=== PATIENT | male | born 1955 | race Caucasian/White ===

== ENCOUNTER 2018-07-04 19:36 | Inpatient (IN) ==
[2018-07-05] MEDS ORDERED: *HR* Morphine 2 MG/ML SYRINGE IVP ONE (00:22)
[2018-07-05] MEDS ORDERED: Isovue-370 500 ML BOTTLE IVP ONE ×2 (00:31→01:19)
[2018-07-05] MEDS ORDERED: *HR* Morphine 2 MG/ML SYRINGE IVP PRN (00:31)
[2018-07-05] MEDS ORDERED: 0.9 % Sodium Chloride 1,000 ML IVC SCH (00:45)
[2018-07-05] MEDS ORDERED: Naloxone 0.4 MG/ML INJ IVP PRN (01:23)
[2018-07-05] MEDS ORDERED: Ondansetron 4 MG/2 ML VIAL IVP PRN (01:23)
[2018-07-05] MEDS ORDERED: Albuterol 2.5 MG/3 ML NEBULIZER IH PRN (01:28)
[2018-07-05] MEDS ORDERED: 0.9 % Sodium Chloride 1,000 ML IVC ONE (01:28)
[2018-07-05] MEDS ORDERED: *HR* Heparin 5,000 UNIT/ML VIAL IVP PRN ×2 (01:28)
[2018-07-05] MEDS ORDERED: Heparin 25,000 UNIT/250 ML D5W 25,000 UNIT/250 ML IV.SOLN IVC SCH (01:30)
[2018-07-05 01:48] LABS: Basophils # 0.1 K/mcL (0.0-0.2); Basophils % 0.7 %; Eosinophils # 0.1 K/mcL (0.0-0.6); Eosinophils % 0.8 %; Hematocrit 41.5 % (37.5-50.1); Hemoglobin 13.2 g/dL (12.9-16.9); Immature Granulocytes % 0.3 % (0-4); Lymphocytes # 1.1 K/mcL (0.6-4.6); Lymphocytes % 15.1 %; Mean Corpuscular HGB Conc 31.8 g/dL (31.6-35.5); Mean Corpuscular Hemoglobin 28.3 pg (28.0-33.3); Mean Corpuscular Volume 89.1 fL (83.0-100.0); Mean Platelet Volume 12.2 fL (9.4-12.4); Monocytes # 0.8 K/mcL (0.0-1.3); Monocytes % 10.3 %; Neutrophils # 5.3 K/mcL (1.6-8.9); Platelet Count 115 K/mcL (140-400); Red Blood Count 4.66 M/mcL (4.19-5.50); Red Cell Distribution Width 14.4 % (11.5-14.5); Segmented Neutrophils % 72.8 %
--- NOTE | 2018-07-05 01:51 | Internal Med History&Physical ---
Date of Encounter: 07/05/18 Time of Encounter: 00:19 Internal Medicine - H&P: HPI Chief complaint: chest pain Admitted From: Hospital to Hospital Transfer Plans for Post Hospital Care: Home History of present illness: Mr. Mueller is a 62 year old male who was transferred from [facility] inpatient unit for concerns of chest pain and positive troponin. I spoke with the nursing staff at [facility] after a transfer request was made by the primary physician. The primary physician was not at the hospital, so I spoke with the nursing staff who gave me report and history of the patient. Patient reportedly was admitted for chest pain 2 days ago and then had positive troponin today. Therefore, patient was transferred over for further cardiac workup and care. Patient reportedly had recurrence of chest pain, which prompted a repeat troponin and transfer to [facility]. Upon arrival to [facility], I was summoned by nursing staff emergently to his bedside for patient having significant difficulty with crushing chest pain radiating to his mid back. Patient was in severe distress, clutching his chest, complaining of pain going to his back, and having significant increased work of breathing. I ordered some STAT morphine to alleviate his pain, stat EKG, and a STAT CTA of the chest and aorta with runoff to evaluate for possible aortic dissection. We were able to control his chest with morphine, and I am awaiting CTA results. EKG showed left bundle branch block, which was old compared to prior EKGs. On exam, he does have crackles in the left base concerning for pneumonia. Patient was having had cough, fevers, and chills prior to admission. After the morphine administration, he felt much better and was resting comfortably. Nonetheless, there is still a high index of suspicion for aortic dissection, and I therefore ordered a CTA of the chest and abdomen. Patient does have a history of coronary artery disease and had a CABG in 2000 in [place], [place]. He recently relocated to [place] about 1 year ago and resides in the [facility]. He is a smoker but denies any alcohol or illicit drug use. He denies any GI problems. Patient was transferred here from [facility] on a heparin drip and Nitropaste. Past Med Surg Social Fam HX - Past Medical History Attestation: Yes The following information was validated with the patient. Source: patient, other ([facility] records) Medical history: CHF, COPD, coronary artery disease, hyperlipidemia, hypertension Additional medical history: RESTLESS LEGS Psychiatric history: no psych history - Past Surgical History Surgical History: coronary bypass (CABG) Additional surgical history: right leg surgery 1982 - Social History Smoking Status: Current every day smoker (Smokes less than 1PPD, but more than 0.5 PPD.) Smokeless Tobacco Status: No Alcohol use: none Drug use: marijuana Activity Level: Independent ambulation Recent Out of Country Travel Within the Last 8 Weeks: No - Family History Mother Living Status: Hx Family Cardiac Disorders: Yes ( Mother had an PA prior to 65yo.) Internal Medicine - H&P: Meds Aspirin [Lo-Dose Aspirin EC] 81 mg PO DAILY 07/02/18 [History] Gabapentin [Neurontin] 600 mg PO TID 07/02/18 [History] Metoprolol [Lopressor] 25 mg PO BID 07/02/18 [History] rOPINIRole [Requip] 1 mg PO TID 07/02/18 [History] Aspirin 81 mg PO DAILY 07/03/18 [History] Atorvastatin [Lipitor] 40 mg PO HS 07/03/18 [History] Ferrous Sulfate [Iron] 325 mg PO TID 07/03/18 [History] Furosemide [Lasix] 20 mg PO DAILY 07/03/18 [History] Lisinopril-HCTZ 10-12.5 [Prinzide 10-12.5] 1 each PO DAILY 07/03/18 [History] Allergy/AdvReac Type Severity Reaction Status Date / Time No Known Allergies Allergy Verified 07/02/18 16:55 - Constitutional Constitutional: fatigue, fever(s), no chills, no night sweats - EENT Eyes: no blurry vision, no change in vision Ears: no ear pain, no tinnitus Nose, mouth and throat: no nasal congestion, no sinus pressure, no sore throat - Cardiovascular Cardiovascular ROS IM: chest pain, diaphoresis, dyspnea, dyspnea on exertion, no orthopnea, no syncope - Respiratory Respiratory: cough, dyspnea, wheezing, chest congestion, change in phlegm color, pain with cough, no hemoptysis, no excessive phlegm production - Gastrointestinal Gastrointestinal: nausea, no abdominal pain, no diarrhea, no heartburn, no hematemesis, no hematochezia, no melena, no vomiting - Genitourinary Genitourinary ROS male: no dysuria, no flank pain, no hematuria - Musculoskeletal Musculoskeletal ROS IM: no arthralgias, no back pain - Integumentary Integumentary IM: no rash, no jaundice - Neurological Neurological ROS: no disequilibrium, no dizziness, no focal weakness, no frequent falls, no headache(s) - Psychiatric Psychiatric: no anxiety, no depression - Endocrine Endocrine IM: no polydipsia, no polyuria - Allergic/Immunologic Allergic/Immunologic: wheezing, no GI upset with certain foods - Constitutional Vitals: Temp Pulse Resp BP Pulse Ox 98.4 F 66 16 120/89 100 07/05/18 00:21 07/05/18 00:21 07/05/18 00:21 07/05/18 00:07/05/18 00:21 General appearance: Present: A&O X 3, severe distress, answers questions appropriately Exam: patient clutching his chest, diaphoretic, complaining of severe chest pain radiating from sternum to mid-back (knife-like pain), profoundly dyspneic, anxious, nervous - Head Head exam: Present: normal inspection - Eye Eye exam: Present: EOMI, PERRL. Absent: scleral icterus Pupils: Present: normal accommodation - ENT ENT exam: Present: mucous membranes dry, normal exam - Neck Neck exam general surgery: Present: full ROM, supple, trachea midline. Absent: tenderness, nuchal rigidity, thyromegaly - Respiratory Respiratory exam: Present: accessory muscle use, rales (left base), respiratory distress, tachypnea. Absent: chest wall tenderness, rhonchi, wheezes - Cardiovascular Cardiovascular exam: Present: distant heart sounds, RRR, +S1, +S2, tachycardia. Absent: diastolic murmur, systolic murmur - GI/Abdominal GI/Abdominal exam: Present: normal bowel sounds, soft. Absent: guarding, hepatomegaly, mass, rebound, splenomegaly, tenderness - Extremities Exam Extremities exam: Present: joint swelling, normal capillary refill, normal inspection, warm, radial pulses palpable and symmetrical. Absent: calf te nderness, mottling, pedal edema, tenderness - Back Exam Back exam: Present: normal inspection. Absent: CVA tenderness (L), CVA tenderness (R) - Neurological Exam Neurological exam: Present: alert, CN II-XII intact, oriented X3, no focal deficits - Psychiatric Psychiatric exam: Present: anxious - Skin Skin exam: Present: dry, intact, warm Internal Med - H&P Results - Labs Labs: I reviewed the labs from [facility] they include the following: WBC 9.4 Hemoglobin 13.5 Hematocrit 41.9 Platelets 126 PT 11.9 INR 1.1 Sodium 132 Potassium 4.1 Chloride 92 Dioxide 32 BUN 21 Creatinine 1.37 Troponin 0.05 EKG reveals left bundle branch block - EKG Data -: EKG Interpreted by Myself - EKG Data Prior EKG available for review: yes When compared to previous EKG: there is no significant change EKG comments: 07/05/18 01:58 Sinus rhythm; LBBB - Impressions ITS Impressions Aorta w/Runoff CTA 07/05/18 00:31 IMPRESSION: 1. No aneurysm or dissection in the visualized portions of the aorta. A chest was not performed and a repeat study will need to be performed in this patient with a history of chest pain. 2. Complete occlusion of the right common iliac artery, the left internal iliac artery, and the left superficial femoral artery with very poor flow in the lower legs. 3. Moderate to severe stenosis of the left renal artery origin. 4. Chest findings suggest congestive heart failure. 5. Trace ascites. Findings and the fact that a chest CT scan was either not requested or not performed was discussed with Dr. Bella at approximately 1:20 a.m. on 07/05/2018. D/ / Baltazar Harvey MD / Baltazar Harvey MD Interpreting Provider: Baltazar Harvey MD - Assessment and Plan (1) Chest pain Current Visit: Yes Status: Acute Assessment and plan: 1. Clinical concern for aortic dissection. 2. STAT CTA ordered as above. 3. Will trend troponins, EKG, and order ECHO. 4. Awaiting CTA results presently -- spoke with radiology; unable to determine for sure due to CTA study was done for PE rather than aorta; radiology recommends ordering STAT ECHO. Will order ECHO STAT. 5. Consult cardiology. 6. Continue Morphine and NTP for chest pain. 7. Heparin gtt on hold for now. Qualifiers: Chest pain type: other chest pain Qualified Code(s): R07.89 - Other chest pain; R07.8 - Other chest pain (2) Pneumonia Current Visit: Yes Status: Suspected Assessment and plan: 1. Clinical concern for pneumonia. 2. Will order blood cultures and start antibiotics. 3. Oxygen, aerosols as needed. 4. Chest pain may pleuritic in nature from pneumonia. Qualifiers: Pneumonia type: due to unspecified organism Laterality: left Lung location: lower lobe of lung Qualified Code(s): J18.1 - Lobar pneumonia, unspecified organism (3) COPD (chronic obstructive pulmonary disease) Current Visit: Yes Status: Chronic Assessment and plan: 1. Will order aerosols scheduled and PRN. 2. Oxygen as needed. 3. No active wheezing; hold off on steroids unless he develops COPD flare. Qualifiers: COPD type: unspecified COPD Qualified Code(s): J44.9 - Chronic obstructive pulmonary disease, unspecified (4) DVT prophylaxis Current Visit: Yes Status: Acute Assessment and plan: 1. Heparin stopped; will order EPCD's.
[2018-07-05 01:56] LABS: Prothrombin Time 11.8 Seconds (9.4-12.1)
[2018-07-05 01:57] LABS: Heparin anti-factor XA UFH 0.35 IU/mL (0.30-0.70)
[2018-07-05 01:59] LABS: Activated Partial Thrombo Time 57.2 Seconds (26.0-36.0)
[2018-07-05] MEDS ORDERED: Azithromycin 500 MG in D5% in Water 250 ML IVPB SCH (02:00)
[2018-07-05] MEDS ORDERED: cefTRIAXone 2,000 MG in Water for inj. (sterile) 20 ML 20 ML IVP SCH (02:00)
[2018-07-05 02:16] LABS: Alanine Aminotransferase 19 Units/L (7-52); Albumin 3.6 g/dL (3.5-5.7); Albumin/Globulin Ratio 1.5 (1.1-2.2); Alkaline Phosphatase 77 Units/L (34-104); Aspartate Amino Transferase 16 Units/L (13-39); BUN/Creatinine Ratio 21 (6-26); Blood Urea Nitrogen 25 mg/dL (8-23); Carbon Dioxide 29 mEq/L (23-29); Chloride 89 mEq/L (98-107); Chol/HDL Ratio 2.7 (0-4.9); Cholesterol 104 mg/dL (< 200); Globulin 2.4 g/dL (2.4-3.5); Glucose 95 mg/dL (70-105); HDL Cholesterol 39 mg/dL (40-59); LDL Cholesterol,Calculated 55 mg/dL (0-99); Magnesium 1.7 mg/dL (1.6-2.6); Osmolality,Calculated 266 (280-300); Potassium 4.1 mEq/L (3.5-5.1); Sodium 126 mEq/L (136-145); Triglycerides 48 mg/dL (< 150); Troponin I 0.06 ng/mL (< 0.04); eGFR For Non-African Americans > 60 (> 60)
[2018-07-05 02:53] VITALS: BP 115/80
[2018-07-05] MEDS: Ipratropium/Albuterol Neb 3 ML IH SCH ×2 (04:02)
[2018-07-05] MEDS ORDERED: Aspirin 81 MG TAB.CHEW PO SCH (09:00)
--- NOTE | 2018-07-05 17:51 | Electrocardiograph Report ---
[place] [address] Test Date: 2018-07-05 Pat Name: Flo Mueller Department: 111 Room: 2NE19 Gender: M Database Design Analyst: : 1955 Requested By: Jose Bella Order Number: [id number] Reading MD: Cheyenne Diop Measurements Intervals [place] Rate: 59 P: 0 ME: 130 QRS: 4 QRSD: 154 T: 99 QT: 467 QTc: 466 Interpretive Statements SINUS BRADYCARDIA LEFT BUNDLE BRANCH BLOCK Electronically Signed On 07-05-2018 17:49:21 EDT by Cheyenne Diop
== END 2018-07-05 04:55 | disposition critical access hospital (66) | DRG 299 ==
LOC: 2NENU
PROVIDERS: ADMIT Pediatrics; ATTEND Pediatrics

== ENCOUNTER 2019-06-14 14:08 | Inpatient (IN) ==
[2019-06-14] MEDS ORDERED: Naloxone 0.4 MG/ML INJ IVP PRN (17:43)
[2019-06-14 18:36] LABS: Bilirubin,Urine Small (Negative); Blood,Urine Negative (Negative); Clarity,Urine Clear (Clear); Color,Urine Dark Yellow (Yellow); Glucose,Urine (UA) Normal (Normal); Ketones,Urine Negative (Negative); Leukocyte Esterase,Urine Trace (Negative); Nitrite,Urine Negative (Negative); PH,Urine 5.5 pH Units (5.0-8.0); Protein,Urine Negative (Neg-Trace); Specific Gravity,Urine 1.021 (1.010-1.025)
[2019-06-14 18:38] LABS: RBC,Urine 0-3 per hpf (0-3); Squamous Epithelial Cell,Urine Many per lpf (None-Few); WBC,Urine 0-3 per hpf (0-3)
[2019-06-14 18:44] LABS: Sodium, Urine 19.7 mEq/L
[2019-06-14 18:47] LABS: Eosinophils % 0.6 %; Mean Corpuscular Volume 84.8 fL (83.0-100.0)
[2019-06-14 18:49] LABS: Basophils % 0.3 %; Hemoglobin 11.7 g/dL (12.9-16.9); Immature Granulocytes % 0.9 % (0-4); Immature Platelets 7.6 % (1.1-6.1); Lymphocytes # 0.5 K/mcL (0.6-4.6); Mean Corpuscular HGB Conc 30.8 g/dL (31.6-35.5); Mean Corpuscular Hemoglobin 26.1 pg (28.0-33.3); Mean Platelet Volume 10.5 fL (9.4-12.4); Monocytes # 0.6 K/mcL (0.0-1.3); Monocytes % 8.7 %; Neutrophils # 5.7 K/mcL (1.6-8.9); Red Blood Count 4.48 M/mcL (4.19-5.50); Red Cell Distribution Width 17.3 % (11.5-14.5); Segmented Neutrophils % 82.5 %; White Blood Count 6.9 K/mcL (4.3-11.1)
[2019-06-14 18:50] LABS: Platelet Count 89 K/mcL (140-400)
[2019-06-14] MEDS ORDERED: Piperacillin/Tazobactam 3.375 GM in 0.9 % Sodium Chloride Mini Bag 100 ML IVPB STA (18:50)
[2019-06-14 18:56] LABS: INR 1.1; Prothrombin Time 12.4 Seconds (9.4-12.1)
[2019-06-14 18:58] LABS: Bacteria,Urine Few per hpf (None-Few); Hyaline Casts,Urine Few per lpf (None-Few)
[2019-06-14 19:03] LABS: ABG Base Excess 4 mEq/L (-2 to 3); ABG HCO3 28 mEq/L (21-27); ABG Oxygen Saturation 96 % (95-98); ABG PCO2 42 mmHg (35-45); ABG PH 7.43 pH Units (7.32-7.45); ABG PO2 79 mmHg (85-104); ABG TCO2 30 mEq/L (20-26)
[2019-06-14 19:05] LABS: BUN/Creatinine Ratio 25 (6-26); Blood Urea Nitrogen 25 mg/dL (8-23); Calcium 7.9 mg/dL (8.6-10.3); Carbon Dioxide 30 mEq/L (23-29); Chloride 88 mEq/L (98-107); Glucose 113 mg/dL (70-105); Osmolality,Calculated 261 (280-300); Potassium 3.6 mEq/L (3.5-5.1); Sodium 123 mEq/L (136-145); eGFR For African Americans > 60 (> 60); eGFR For Non-African Americans > 60 (> 60)
[2019-06-14 19:08] LABS: Magnesium 1.6 mg/dL (1.6-2.6); Phosphorous 2.7 mg/dL (2.7-4.5)
[2019-06-14 19:09] LABS: Troponin I < 0.03 ng/mL (< 0.04)
[2019-06-14] MEDS: Albumin 25% 25gram/100mL 25 GM/100 ML IV.SOLN IVC SCH ×2 (19:12→20:54)
[2019-06-14] MEDS ORDERED: Albuterol 2.5 MG/3 ML NEBULIZER IH PRN (19:26)
[2019-06-14 19:52] LABS: C-Reactive Protein 23 mg/L (Less than 10)
[2019-06-14] MEDS: Ipratropium/Albuterol Neb 3 ML IH SCH (20:05)
[2019-06-14] MEDS: Levothyroxine Sodium 100 MCG VIAL IVP SCH (20:54)
[2019-06-14] MEDS: *HR* Heparin 5,000 UNIT/ML VIAL SQ SCH (20:56)
[2019-06-14] MEDS: rOPINIRole 1 MG TABLET PO SCH (20:56)
[2019-06-15 02:48] LABS: Eosinophils % 0.3 %; Immature Granulocytes % 0.5 % (0-4); Mean Corpuscular HGB Conc 32.2 g/dL (31.6-35.5)
[2019-06-15 02:50] LABS: Basophils % 0.2 %; Hematocrit 32.3 % (37.5-50.1); Hemoglobin 10.4 g/dL (12.9-16.9); INR 1.1; Immature Platelets 7.5 % (1.1-6.1); Lymphocytes # 0.4 K/mcL (0.6-4.6); Mean Corpuscular Hemoglobin 26.9 pg (28.0-33.3); Mean Corpuscular Volume 83.7 fL (83.0-100.0); Mean Platelet Volume 10.8 fL (9.4-12.4); Monocytes # 0.4 K/mcL (0.0-1.3); Monocytes % 7.1 %; Neutrophils # 5.2 K/mcL (1.6-8.9); Red Blood Count 3.86 M/mcL (4.19-5.50); Red Cell Distribution Width 17.3 % (11.5-14.5); Segmented Neutrophils % 85.9 %
[2019-06-15 02:52] LABS: Activated Partial Thrombo Time 38.8 Seconds (26.0-36.0)
[2019-06-15 03:04] LABS: BUN/Creatinine Ratio 27 (6-26); Blood Urea Nitrogen 23 mg/dL (8-23); Calcium 8.1 mg/dL (8.6-10.3); Carbon Dioxide 29 mEq/L (23-29); Chloride 90 mEq/L (98-107); Glucose 94 mg/dL (70-105); Magnesium 1.6 mg/dL (1.6-2.6); Osmolality,Calculated 261 (280-300); Phosphorous 2.6 mg/dL (2.7-4.5); Potassium 3.8 mEq/L (3.5-5.1); Sodium 124 mEq/L (136-145); eGFR For African Americans > 60 (> 60); eGFR For Non-African Americans > 60 (> 60)
[2019-06-15 03:09] LABS: Platelet Count 80 K/mcL (140-400)
[2019-06-15] MEDS: Ipratropium/Albuterol Neb 3 ML IH SCH ×7 (03:55→23:38)
[2019-06-15] MEDS: *HR* Heparin 5,000 UNIT/ML VIAL SQ SCH ×3 (05:03→21:19)
[2019-06-15 06:35] LABS: Adenovirus Not Detected (Not Detect); Coronavirus 229E Not Detected (Not Detect); Coronavirus HKU1 Not Detected (Not Detect); Coronavirus NL63 Not Detected (Not Detect); Coronavirus OC43 Not Detected (Not Detect); Human Metapneumovirus Not Detected (Not Detect); Human Rhinovirus/Enterovirus Not Detected (Not Detect); Influenza A Subtype 2009 H1 Not Detected (Not Detect)
[2019-06-15 06:36] LABS: Bordetella Pertussis Not Detected (Not Detect); Chlamydophila pneumoniae Not Detected (Not Detect); Influenza B Not Detected (Not Detect); Mycoplasma pneumoniae Not Detected (Not Detect); Parainfluenza Virus 1 Not Detected (Not Detect); Parainfluenza Virus 2 Not Detected (Not Detect); Parainfluenza Virus 3 Not Detected (Not Detect); Parainfluenza Virus 4 Not Detected (Not Detect); Respiratory Syncytial Virus Not Detected (Not Detect)
[2019-06-15] MEDS ORDERED: Piperacillin/Tazobactam 3.375 GM in 0.9 % Sodium Chloride Mini Bag 100 ML IVPB SCH (08:00)
[2019-06-15] MEDS: rOPINIRole 1 MG TABLET PO SCH ×3 (08:27→21:19)
[2019-06-15] MEDS: Levothyroxine Sodium 100 MCG VIAL IVP SCH (08:28)
[2019-06-15] MEDS ORDERED: Aspirin Enteric Coated 81 MG Tablet PO SCH (09:00)
[2019-06-15] MEDS ORDERED: Aminoglycoside Consult 1 EACH MC ONE (09:25)
[2019-06-15] MEDS ORDERED: Albuterol 2.5 MG/3 ML NEBULIZER IH PRN (10:31)
[2019-06-15] MEDS ORDERED: Nitroglycerin 0.4 MG TAB.SUBL SL PRN (10:31)
[2019-06-15] MEDS ORDERED: Naloxone 0.4 MG/ML INJ IVP PRN (10:31)
[2019-06-15] MEDS ORDERED: Metoprolol XL (24 HR) Succ 25 MG TAB.ER.24H PO SCH (10:31)
[2019-06-15] MEDS ORDERED: ceFAZolin 1,000 MG in Water for inj. (sterile) 10 ML IVP SCH (16:00)
[2019-06-15] MEDS: ceFAZolin 1,000 MG in Water for inj. (sterile) 10 ML IVP SCH ×2 (16:03→23:41)
[2019-06-15] MEDS: Nicotine 21 MG PATCH.TD24 TD SCH (16:03)
[2019-06-15] MEDS ORDERED: Hydrocortisone Sodium Succ 100 MG/2 ML VIAL IVP SCH (19:24)
[2019-06-16] MEDS: Ipratropium/Albuterol Neb 3 ML IH SCH ×6 (03:32→23:37)
[2019-06-16] MEDS: *HR* Heparin 5,000 UNIT/ML VIAL SQ SCH ×3 (05:08→20:05)
[2019-06-16] MEDS ORDERED: Furosemide 40 MG/4 ML VIAL IVP ONE (07:46)
[2019-06-16] MEDS ORDERED: Levothyroxine Sodium 100 MCG VIAL IVP SCH (09:00)
[2019-06-16] MEDS: Aspirin Enteric Coated 81 MG Tablet PO SCH (09:55)
[2019-06-16] MEDS: ceFAZolin 1,000 MG in Water for inj. (sterile) 10 ML IVP SCH ×3 (09:55→23:10)
[2019-06-16] MEDS: rOPINIRole 1 MG TABLET PO SCH ×3 (09:55→20:05)
[2019-06-16] MEDS: Nicotine 21 MG PATCH.TD24 TD SCH (09:56)
[2019-06-16 12:11] LABS: Hemoglobin 11.1 g/dL (12.9-16.9); Mean Corpuscular Volume 83.1 fL (83.0-100.0); Red Cell Distribution Width 17.2 % (11.5-14.5)
[2019-06-16 12:13] LABS: Immature Platelets 10.5 % (1.1-6.1); Mean Corpuscular HGB Conc 31.7 g/dL (31.6-35.5); Mean Corpuscular Hemoglobin 26.4 pg (28.0-33.3); Mean Platelet Volume 11.1 fL (9.4-12.4); Red Blood Count 4.21 M/mcL (4.19-5.50); White Blood Count 5.9 K/mcL (4.3-11.1)
[2019-06-16 12:30] LABS: BUN/Creatinine Ratio 24 (6-26); Blood Urea Nitrogen 21 mg/dL (8-23); Calcium 8.3 mg/dL (8.6-10.3); Carbon Dioxide 30 mEq/L (23-29); Chloride 88 mEq/L (98-107); Glucose 113 mg/dL (70-105); Osmolality,Calculated 256 (280-300); Potassium 4.1 mEq/L (3.5-5.1); Sodium 121 mEq/L (136-145); eGFR For African Americans > 60 (> 60); eGFR For Non-African Americans > 60 (> 60)
[2019-06-16] MEDS: Neosporin OINT 1 APPL PACKET TP SCH ×2 (12:58→12:59)
[2019-06-16] MEDS ORDERED: cloNIDine HCL 0.1 MG TABLET PO ONE (15:17)
[2019-06-17] MEDS: Ipratropium/Albuterol Neb 3 ML IH SCH ×6 (03:39→23:57)
[2019-06-17 05:30] LABS: Eosinophils % 0.4 %; Red Cell Distribution Width 17.1 % (11.5-14.5)
[2019-06-17 05:32] LABS: Hematocrit 31.4 % (37.5-50.1); Immature Granulocytes % 0.4 % (0-4); Immature Platelets 7.9 % (1.1-6.1); Lymphocytes # 0.4 K/mcL (0.6-4.6); Lymphocytes % 8.6 %; Mean Corpuscular HGB Conc 31.8 g/dL (31.6-35.5); Mean Corpuscular Hemoglobin 26.5 pg (28.0-33.3); Mean Corpuscular Volume 83.1 fL (83.0-100.0); Mean Platelet Volume 10.7 fL (9.4-12.4); Monocytes # 0.6 K/mcL (0.0-1.3); Monocytes % 11.1 %; Neutrophils # 4.1 K/mcL (1.6-8.9); Red Blood Count 3.78 M/mcL (4.19-5.50); Segmented Neutrophils % 79.5 %; White Blood Count 5.1 K/mcL (4.3-11.1)
[2019-06-17 05:37] LABS: Platelet Count 62 K/mcL (140-400)
[2019-06-17 05:50] LABS: BUN/Creatinine Ratio 25 (6-26); Blood Urea Nitrogen 18 mg/dL (8-23); Calcium 8.1 mg/dL (8.6-10.3); Carbon Dioxide 30 mEq/L (23-29); Chloride 89 mEq/L (98-107); Glucose 76 mg/dL (70-105); Osmolality,Calculated 257 (280-300); Potassium 4.2 mEq/L (3.5-5.1); Sodium 123 mEq/L (136-145); eGFR For African Americans > 60 (> 60); eGFR For Non-African Americans > 60 (> 60)
[2019-06-17] MEDS: *HR* Heparin 5,000 UNIT/ML VIAL SQ SCH ×2 (06:14→12:42)
[2019-06-17] MEDS: rOPINIRole 1 MG TABLET PO SCH ×3 (09:01→20:12)
[2019-06-17] MEDS: Aspirin Enteric Coated 81 MG Tablet PO SCH (09:01)
[2019-06-17] MEDS: Nicotine 21 MG PATCH.TD24 TD SCH (09:01)
[2019-06-17] MEDS: ceFAZolin 1,000 MG in Water for inj. (sterile) 10 ML IVP SCH (09:03)
[2019-06-17] MEDS ORDERED: Albumin 25% 25gram/100mL 25 GM/100 ML IV.SOLN IVPB ONE (15:05)
[2019-06-17] MEDS ORDERED: Furosemide 40 MG/4 ML VIAL IVP ONE (15:05)
[2019-06-17] MEDS: cephALEXin 500 MG CAPSULE PO SCH ×2 (17:22→20:12)
[2019-06-17] MEDS: Acetaminophen 325 MG TABLET PO PRN (18:16)
[2019-06-17] MEDS ORDERED: Ketorolac 15 MG/ML VIAL IVP ONE (19:22)
[2019-06-18] MEDS: Ipratropium/Albuterol Neb 3 ML IH SCH ×6 (03:45→23:55)
[2019-06-18 05:35] LABS: Basophils % 0.2 %; Red Cell Distribution Width 17.1 % (11.5-14.5)
[2019-06-18 05:36] LABS: Eosinophils % 0.7 %; Hematocrit 31.7 % (37.5-50.1); Immature Granulocytes % 0.7 % (0-4); Immature Platelets 9.6 % (1.1-6.1); Lymphocytes # 0.4 K/mcL (0.6-4.6); Lymphocytes % 8.8 %; Mean Corpuscular HGB Conc 31.5 g/dL (31.6-35.5); Mean Corpuscular Hemoglobin 26.2 pg (28.0-33.3); Mean Platelet Volume 11.4 fL (9.4-12.4); Monocytes # 0.4 K/mcL (0.0-1.3); Monocytes % 9.9 %; Red Blood Count 3.82 M/mcL (4.19-5.50); Segmented Neutrophils % 79.7 %; White Blood Count 4.3 K/mcL (4.3-11.1)
[2019-06-18 05:41] LABS: Neutrophils # 3.4 K/mcL (1.6-8.9); Platelet Count 58 K/mcL (140-400)
[2019-06-18 05:51] LABS: BUN/Creatinine Ratio 22 (6-26); Blood Urea Nitrogen 17 mg/dL (8-23); Calcium 8.3 mg/dL (8.6-10.3); Carbon Dioxide 32 mEq/L (23-29); Chloride 88 mEq/L (98-107); Glucose 78 mg/dL (70-105); Osmolality,Calculated 256 (280-300); Potassium 4.2 mEq/L (3.5-5.1); Sodium 123 mEq/L (136-145); eGFR For African Americans > 60 (> 60); eGFR For Non-African Americans > 60 (> 60)
[2019-06-18] MEDS: Acetaminophen 325 MG TABLET PO PRN (08:43)
[2019-06-18] MEDS: cephALEXin 500 MG CAPSULE PO SCH ×4 (08:43→20:25)
[2019-06-18] MEDS: Aspirin Enteric Coated 81 MG Tablet PO SCH (08:43)
[2019-06-18] MEDS: Neosporin OINT 1 APPL PACKET TP SCH (08:44)
[2019-06-18] MEDS: Nicotine 21 MG PATCH.TD24 TD SCH (08:44)
[2019-06-18] MEDS: rOPINIRole 1 MG TABLET PO SCH ×3 (08:44→20:25)
[2019-06-18] MEDS: methocarbamoL 500 MG TABLET PO SCH ×3 (11:18→23:42)
[2019-06-18] MEDS ORDERED: Furosemide 40 MG/4 ML VIAL IVP ONE (12:17)
[2019-06-19] MEDS: Ipratropium/Albuterol Neb 3 ML IH SCH ×5 (03:52→20:06)
[2019-06-19] MEDS: rOPINIRole 1 MG TABLET PO SCH ×3 (07:49→20:15)
[2019-06-19] MEDS: Acetaminophen 325 MG TABLET PO PRN ×2 (07:49→20:15)
[2019-06-19] MEDS: Aspirin Enteric Coated 81 MG Tablet PO SCH (07:49)
[2019-06-19] MEDS: cephALEXin 500 MG CAPSULE PO SCH ×2 (07:50→11:59)
[2019-06-19] MEDS: methocarbamoL 500 MG TABLET PO SCH ×3 (07:50→23:36)
[2019-06-19] MEDS: Nicotine 21 MG PATCH.TD24 TD SCH (07:50)
[2019-06-19] MEDS: Neosporin OINT 1 APPL PACKET TP SCH (07:50)
[2019-06-19 08:54] LABS: BUN/Creatinine Ratio 21 (6-26); Blood Urea Nitrogen 16 mg/dL (8-23); Calcium 8.4 mg/dL (8.6-10.3); Carbon Dioxide 32 mEq/L (23-29); Chloride 88 mEq/L (98-107); Glucose 84 mg/dL (70-105); Osmolality,Calculated 258 (280-300); Potassium 4.2 mEq/L (3.5-5.1); Sodium 124 mEq/L (136-145); eGFR For African Americans > 60 (> 60); eGFR For Non-African Americans > 60 (> 60)
[2019-06-19] MEDS ORDERED: Tolvaptan 15 MG TABLET PO ONE (09:14)
[2019-06-19] MEDS: *HR* OxyCODONE Immed Rel 5 MG TABLET PO PRN ×2 (13:43→23:36)
[2019-06-20] MEDS: Ipratropium/Albuterol Neb 3 ML IH SCH ×7 (00:09→23:43)
[2019-06-20 06:04] LABS: Eosinophils % 0.6 %; Mean Corpuscular HGB Conc 30.7 g/dL (31.6-35.5); Mean Corpuscular Hemoglobin 26.2 pg (28.0-33.3); Red Cell Distribution Width 17.2 % (11.5-14.5)
[2019-06-20 06:05] LABS: Basophils % 0.4 %; Hematocrit 34.9 % (37.5-50.1); Hemoglobin 10.7 g/dL (12.9-16.9); Immature Granulocytes % 0.2 % (0-4); Immature Platelets 8.5 % (1.1-6.1); Lymphocytes # 0.4 K/mcL (0.6-4.6); Lymphocytes % 8.7 %; Mean Corpuscular Volume 85.5 fL (83.0-100.0); Mean Platelet Volume 11.1 fL (9.4-12.4); Monocytes # 0.5 K/mcL (0.0-1.3); Monocytes % 9.5 %; Neutrophils # 4.1 K/mcL (1.6-8.9); Red Blood Count 4.08 M/mcL (4.19-5.50); Segmented Neutrophils % 80.6 %; White Blood Count 5.1 K/mcL (4.3-11.1)
[2019-06-20 06:07] LABS: INR 1.2; Prothrombin Time 14.1 Seconds (9.4-12.1)
[2019-06-20 06:21] LABS: BUN/Creatinine Ratio 17 (6-26); Blood Urea Nitrogen 14 mg/dL (8-23); Calcium 8.6 mg/dL (8.6-10.3); Carbon Dioxide 37 mEq/L (23-29); Chloride 91 mEq/L (98-107); Glucose 98 mg/dL (70-105); Osmolality,Calculated 268 (280-300); Potassium 3.9 mEq/L (3.5-5.1); Sodium 129 mEq/L (136-145); eGFR For African Americans > 60 (> 60); eGFR For Non-African Americans > 60 (> 60)
[2019-06-20 06:27] LABS: Platelet Count 63 K/mcL (140-400)
[2019-06-20 06:28] LABS: Anisocytosis 1+ (Not Present); Platelet Estimate Decreased (Normal)
[2019-06-20 06:29] LABS: Large Platelets Present (Not Present); Microcytosis Present (Not Present)
[2019-06-20] MEDS: Nicotine 21 MG PATCH.TD24 TD SCH (08:26)
[2019-06-20] MEDS: methocarbamoL 500 MG TABLET PO SCH ×3 (08:27→23:26)
[2019-06-20] MEDS: Neosporin OINT 1 APPL PACKET TP SCH (08:27)
[2019-06-20] MEDS: Aspirin Enteric Coated 81 MG Tablet PO SCH (08:27)
[2019-06-20] MEDS: rOPINIRole 1 MG TABLET PO SCH ×3 (08:27→20:16)
[2019-06-20 09:48] LABS: Albumin 3.1 g/dL (3.5-5.7)
[2019-06-20 15:04] LABS: Amylase,Peritoneal Fluid 13 Units/L (No Ref Range); Glucose,Peritoneal Fluid 119 mg/dL (No Ref Range); LDH,Peritoneal Fluid 74 Units/L (No Ref Range); Total Protein,Peritoneal Fluid < 3.0 g/dL
[2019-06-20 15:24] LABS: RBC,Peritoneal Fluid 0.193 M/mcL
[2019-06-20 15:25] LABS: Appearance of Peritoneal Fl BLOODY (Clear)
[2019-06-20] MEDS ORDERED: Spironolactone 25 MG TABLET PO SCH (15:30)
[2019-06-20] MEDS: *HR* OxyCODONE Immed Rel 5 MG TABLET PO PRN (23:26)
[2019-06-21] MEDS: Ipratropium/Albuterol Neb 3 ML IH SCH ×5 (03:36→19:56)
[2019-06-21 05:33] LABS: Basophils % 0.2 %; Eosinophils # 0.1 K/mcL (0.0-0.6); Eosinophils % 1.7 %; Hematocrit 33.9 % (37.5-50.1); Hemoglobin 10.4 g/dL (12.9-16.9); Immature Granulocytes % 0.4 % (0-4); Immature Platelets 8.2 % (1.1-6.1); Lymphocytes # 0.5 K/mcL (0.6-4.6); Lymphocytes % 9.2 %; Mean Corpuscular HGB Conc 30.7 g/dL (31.6-35.5); Mean Corpuscular Hemoglobin 26.1 pg (28.0-33.3); Monocytes # 0.6 K/mcL (0.0-1.3); Monocytes % 10.8 %; Red Blood Count 3.99 M/mcL (4.19-5.50); Red Cell Distribution Width 17.2 % (11.5-14.5); Segmented Neutrophils % 77.7 %; White Blood Count 5.5 K/mcL (4.3-11.1)
[2019-06-21 05:38] LABS: Neutrophils # 4.3 K/mcL (1.6-8.9); Platelet Count 59 K/mcL (140-400); Platelet Estimate Decreased (Normal)
[2019-06-21 05:51] LABS: BUN/Creatinine Ratio 17 (6-26); Blood Urea Nitrogen 13 mg/dL (8-23); Calcium 8.5 mg/dL (8.6-10.3); Carbon Dioxide 35 mEq/L (23-29); Chloride 91 mEq/L (98-107); Glucose 95 mg/dL (70-105); Osmolality,Calculated 268 (280-300); Potassium 4.2 mEq/L (3.5-5.1); Sodium 129 mEq/L (136-145); eGFR For African Americans > 60 (> 60); eGFR For Non-African Americans > 60 (> 60)
[2019-06-21] MEDS: Aspirin Enteric Coated 81 MG Tablet PO SCH (08:04)
[2019-06-21] MEDS: methocarbamoL 500 MG TABLET PO SCH ×2 (08:04→16:19)
[2019-06-21] MEDS: rOPINIRole 1 MG TABLET PO SCH ×3 (08:04→19:59)
[2019-06-21] MEDS: Neosporin OINT 1 APPL PACKET TP SCH (08:04)
[2019-06-21] MEDS: *HR* OxyCODONE Immed Rel 5 MG TABLET PO PRN ×2 (08:04→14:33)
[2019-06-21] MEDS: Furosemide 40 MG/4 ML VIAL IVP SCH (08:04)
[2019-06-21] MEDS: Nicotine 21 MG PATCH.TD24 TD SCH (08:04)
[2019-06-21] MEDS ORDERED: Furosemide 40 MG/4 ML VIAL IVP ONE (12:09)
[2019-06-21] MEDS: Albumin 25% 25gram/100mL 25 GM/100 ML IV.SOLN IVC SCH ×2 (12:25→14:33)
[2019-06-22] MEDS: methocarbamoL 500 MG TABLET PO SCH ×4 (00:05→23:13)
[2019-06-22] MEDS: Ipratropium/Albuterol Neb 3 ML IH SCH ×7 (00:19→23:44)
[2019-06-22 05:06] LABS: Eosinophils % 1.7 %; Hemoglobin 9.8 g/dL (12.9-16.9); Lymphocytes % 7.7 %; Mean Corpuscular Hemoglobin 26.8 pg (28.0-33.3)
[2019-06-22 05:08] LABS: Basophils % 0.3 %; Eosinophils # 0.1 K/mcL (0.0-0.6); Hematocrit 31.5 % (37.5-50.1); Immature Granulocytes % 0.3 % (0-4); Immature Platelets 8.9 % (1.1-6.1); Lymphocytes # 0.5 K/mcL (0.6-4.6); Mean Corpuscular HGB Conc 31.1 g/dL (31.6-35.5); Mean Corpuscular Volume 86.1 fL (83.0-100.0); Monocytes # 0.6 K/mcL (0.0-1.3); Neutrophils # 4.6 K/mcL (1.6-8.9); Red Blood Count 3.66 M/mcL (4.19-5.50); White Blood Count 5.8 K/mcL (4.3-11.1)
[2019-06-22 05:16] LABS: Platelet Count 59 K/mcL (140-400)
[2019-06-22 05:22] LABS: BUN/Creatinine Ratio 20 (6-26); Blood Urea Nitrogen 15 mg/dL (8-23); Calcium 8.5 mg/dL (8.6-10.3); Carbon Dioxide 37 mEq/L (23-29); Chloride 89 mEq/L (98-107); Glucose 93 mg/dL (70-105); Osmolality,Calculated 269 (280-300); Sodium 129 mEq/L (136-145); eGFR For African Americans > 60 (> 60); eGFR For Non-African Americans > 60 (> 60)
[2019-06-22] MEDS: *HR* OxyCODONE Immed Rel 5 MG TABLET PO PRN ×2 (06:30→23:13)
[2019-06-22] MEDS ORDERED: Tolvaptan 15 MG TABLET PO ONE (07:26)
[2019-06-22] MEDS: Aspirin Enteric Coated 81 MG Tablet PO SCH (09:00)
[2019-06-22] MEDS: rOPINIRole 1 MG TABLET PO SCH ×3 (09:00→20:21)
[2019-06-22] MEDS: Nicotine 21 MG PATCH.TD24 TD SCH (09:01)
[2019-06-22] MEDS: Furosemide 40 MG/4 ML VIAL IVP SCH (09:01)
[2019-06-22] MEDS: Neosporin OINT 1 APPL PACKET TP SCH (09:03)
[2019-06-23] MEDS: Ipratropium/Albuterol Neb 3 ML IH SCH ×6 (03:42→23:42)
[2019-06-23 05:17] LABS: Basophils % 0.5 %; Hematocrit 34.2 % (37.5-50.1); Red Cell Distribution Width 17.2 % (11.5-14.5)
[2019-06-23 05:19] LABS: Eosinophils # 0.1 K/mcL (0.0-0.6); Eosinophils % 1.1 %; Hemoglobin 10.5 g/dL (12.9-16.9); Immature Granulocytes % 0.4 % (0-4); Immature Platelets 8.7 % (1.1-6.1); Lymphocytes # 0.5 K/mcL (0.6-4.6); Lymphocytes % 8.8 %; Mean Corpuscular HGB Conc 30.7 g/dL (31.6-35.5); Mean Corpuscular Hemoglobin 26.3 pg (28.0-33.3); Mean Corpuscular Volume 85.7 fL (83.0-100.0); Monocytes # 0.5 K/mcL (0.0-1.3); Monocytes % 9.4 %; Red Blood Count 3.99 M/mcL (4.19-5.50); Segmented Neutrophils % 79.8 %; White Blood Count 5.7 K/mcL (4.3-11.1)
[2019-06-23 05:20] LABS: Neutrophils # 4.6 K/mcL (1.6-8.9); Platelet Count 71 K/mcL (140-400)
[2019-06-23 05:22] LABS: Fluid Source for Albumin ASCITES
[2019-06-23 05:31] LABS: BUN/Creatinine Ratio 19 (6-26); Blood Urea Nitrogen 14 mg/dL (8-23); Calcium 8.7 mg/dL (8.6-10.3); Carbon Dioxide 37 mEq/L (23-29); Chloride 93 mEq/L (98-107); Glucose 89 mg/dL (70-105); Osmolality,Calculated 266 (280-300); Sodium 128 mEq/L (136-145); eGFR For African Americans > 60 (> 60); eGFR For Non-African Americans > 60 (> 60)
[2019-06-23] MEDS: rOPINIRole 1 MG TABLET PO SCH ×3 (07:38→20:45)
[2019-06-23] MEDS: Neosporin OINT 1 APPL PACKET TP SCH (07:38)
[2019-06-23] MEDS: methocarbamoL 500 MG TABLET PO SCH ×2 (07:38→15:26)
[2019-06-23] MEDS: Nicotine 21 MG PATCH.TD24 TD SCH (07:38)
[2019-06-23] MEDS: Aspirin Enteric Coated 81 MG Tablet PO SCH (07:38)
[2019-06-23] MEDS: Furosemide 40 MG/4 ML VIAL IVP SCH (07:39)
[2019-06-23] MEDS: *HR* OxyCODONE Immed Rel 5 MG TABLET PO PRN ×2 (07:46→18:32)
[2019-06-23] MEDS ORDERED: Tolvaptan 15 MG TABLET PO ONE (09:00)
[2019-06-24] MEDS: methocarbamoL 500 MG TABLET PO SCH ×3 (00:53→16:26)
[2019-06-24] MEDS: Ipratropium/Albuterol Neb 3 ML IH SCH ×6 (03:33→23:29)
[2019-06-24 07:40] LABS: Hemoglobin 9.9 g/dL (12.9-16.9); Immature Granulocytes % 0.4 % (0-4); Red Cell Distribution Width 17.2 % (11.5-14.5)
[2019-06-24 07:42] LABS: Basophils % 0.8 %; Eosinophils # 0.1 K/mcL (0.0-0.6); Eosinophils % 1.9 %; Hematocrit 32.1 % (37.5-50.1); Immature Platelets 6.5 % (1.1-6.1); Lymphocytes # 0.5 K/mcL (0.6-4.6); Lymphocytes % 9.6 %; Mean Corpuscular HGB Conc 30.8 g/dL (31.6-35.5); Mean Corpuscular Hemoglobin 26.9 pg (28.0-33.3); Mean Corpuscular Volume 87.2 fL (83.0-100.0); Mean Platelet Volume 10.6 fL (9.4-12.4); Monocytes # 0.7 K/mcL (0.0-1.3); Monocytes % 12.5 %; Neutrophils # 3.9 K/mcL (1.6-8.9); Red Blood Count 3.68 M/mcL (4.19-5.50); Segmented Neutrophils % 74.8 %; White Blood Count 5.2 K/mcL (4.3-11.1)
[2019-06-24 07:48] LABS: BUN/Creatinine Ratio 19 (6-26); Blood Urea Nitrogen 13 mg/dL (8-23); Calcium 8.7 mg/dL (8.6-10.3); Carbon Dioxide 39 mEq/L (23-29); Chloride 92 mEq/L (98-107); Glucose 99 mg/dL (70-105); Osmolality,Calculated 276 (280-300); Sodium 133 mEq/L (136-145); eGFR For African Americans > 60 (> 60); eGFR For Non-African Americans > 60 (> 60)
[2019-06-24 08:01] LABS: Platelet Count 77 K/mcL (140-400)
[2019-06-24] MEDS: Aspirin Enteric Coated 81 MG Tablet PO SCH (09:01)
[2019-06-24] MEDS: rOPINIRole 1 MG TABLET PO SCH ×3 (09:02→20:06)
[2019-06-24] MEDS: Furosemide 40 MG/4 ML VIAL IVP SCH (09:02)
[2019-06-24] MEDS: Neosporin OINT 1 APPL PACKET TP SCH (09:02)
[2019-06-24] MEDS: Nicotine 21 MG PATCH.TD24 TD SCH (09:02)
[2019-06-24] MEDS: *HR* OxyCODONE Immed Rel 5 MG TABLET PO PRN ×2 (13:14→20:05)
[2019-06-24] MEDS: Sennosides/Docusate Sodium TABLET PO PRN (18:50)
[2019-06-25] MEDS: *HR* OxyCODONE Immed Rel 5 MG TABLET PO PRN ×3 (02:00→22:49)
[2019-06-25] MEDS: methocarbamoL 500 MG TABLET PO SCH ×4 (02:00→16:51)
[2019-06-25] MEDS: Ipratropium/Albuterol Neb 3 ML IH SCH ×6 (03:29→23:41)
[2019-06-25 07:13] LABS: Hematocrit 32.5 % (37.5-50.1); Hemoglobin 9.8 g/dL (12.9-16.9); Immature Platelets 7.6 % (1.1-6.1); Mean Corpuscular HGB Conc 30.2 g/dL (31.6-35.5); Mean Corpuscular Hemoglobin 26.4 pg (28.0-33.3); Mean Corpuscular Volume 87.6 fL (83.0-100.0); Mean Platelet Volume 10.9 fL (9.4-12.4); Red Blood Count 3.71 M/mcL (4.19-5.50); Red Cell Distribution Width 17.2 % (11.5-14.5)
[2019-06-25] MEDS: rOPINIRole 1 MG TABLET PO SCH ×3 (07:27→22:57)
[2019-06-25] MEDS: Nicotine 21 MG PATCH.TD24 TD SCH (07:27)
[2019-06-25] MEDS: Neosporin OINT 1 APPL PACKET TP SCH (07:27)
[2019-06-25] MEDS: Aspirin Enteric Coated 81 MG Tablet PO SCH (07:27)
[2019-06-25] MEDS: Furosemide 40 MG/4 ML VIAL IVP SCH (07:28)
[2019-06-25] MEDS ORDERED: Ipratropium/Albuterol Neb 3 ML ONE (08:00)
[2019-06-25] MEDS ORDERED: *HR* OxyCODONE Immed Rel 5 MG TABLET ONE (08:00)
[2019-06-25 14:16] LABS: BUN/Creatinine Ratio 19 (6-26); Blood Urea Nitrogen 14 mg/dL (8-23); Calcium 8.7 mg/dL (8.6-10.3); Carbon Dioxide 40 mEq/L (23-29); Chloride 88 mEq/L (98-107); Glucose 89 mg/dL (70-105); Osmolality,Calculated 270 (280-300); Sodium 130 mEq/L (136-145); eGFR For African Americans > 60 (> 60); eGFR For Non-African Americans > 60 (> 60)
[2019-06-25] MEDS ORDERED: rOPINIRole 1 MG TABLET ONE (15:10)
[2019-06-25] MEDS ORDERED: methocarbamoL 500 MG TABLET ONE (15:10)
[2019-06-25] MEDS ORDERED: polyethylene glycoL 3350 17 GM POWD.PACK PO ONE (20:55)
[2019-06-26] MEDS: methocarbamoL 500 MG TABLET PO SCH ×3 (02:02→16:04)
[2019-06-26] MEDS: Ipratropium/Albuterol Neb 3 ML IH SCH ×5 (03:33→19:41)
[2019-06-26 05:00] LABS: Hemoglobin 9.6 g/dL (12.9-16.9); Mean Corpuscular Volume 87.3 fL (83.0-100.0); Red Cell Distribution Width 17.2 % (11.5-14.5)
[2019-06-26 05:02] LABS: Hematocrit 31.6 % (37.5-50.1); Mean Corpuscular HGB Conc 30.4 g/dL (31.6-35.5); Mean Corpuscular Hemoglobin 26.5 pg (28.0-33.3); Mean Platelet Volume 9.7 fL (9.4-12.4); Red Blood Count 3.62 M/mcL (4.19-5.50); White Blood Count 5.7 K/mcL (4.3-11.1)
[2019-06-26 05:26] LABS: BUN/Creatinine Ratio 19 (6-26); Blood Urea Nitrogen 16 mg/dL (8-23); Calcium 8.5 mg/dL (8.6-10.3); Carbon Dioxide 41 mEq/L (23-29); Chloride 86 mEq/L (98-107); Glucose 95 mg/dL (70-105); Osmolality,Calculated 267 (280-300); Potassium 4.4 mEq/L (3.5-5.1); Sodium 128 mEq/L (136-145); eGFR For African Americans > 60 (> 60); eGFR For Non-African Americans > 60 (> 60)
[2019-06-26] MEDS ORDERED: Furosemide 40 MG TABLET PO SCH (08:00)
[2019-06-26] MEDS: Nicotine 21 MG PATCH.TD24 TD SCH (08:06)
[2019-06-26] MEDS: Neosporin OINT 1 APPL PACKET TP SCH (08:06)
[2019-06-26] MEDS: Aspirin Enteric Coated 81 MG Tablet PO SCH (08:06)
[2019-06-26] MEDS: rOPINIRole 1 MG TABLET PO SCH ×3 (08:06→22:12)
[2019-06-26] MEDS ORDERED: Tolvaptan 15 MG TABLET PO SCH (09:00)
[2019-06-26] MEDS ORDERED: polyethylene glycoL 3350 17 GM POWD.PACK PO PRN (09:00)
[2019-06-26] MEDS: Sennosides/Docusate Sodium TABLET PO PRN (11:42)
[2019-06-26 14:31] LABS: ABG Base Excess 12 mEq/L (-2 to 3); ABG HCO3 37 mEq/L (21-27); ABG Oxygen Saturation 98 % (95-98); ABG PCO2 51 mmHg (35-45); ABG PH 7.47 pH Units (7.32-7.45); ABG PO2 103 mmHg (85-104); ABG TCO2 39 mEq/L (20-26)
[2019-06-26] MEDS: *HR* OxyCODONE Immed Rel 5 MG TABLET PO PRN (16:04)
[2019-06-26] MEDS: Furosemide 40 MG TABLET PO SCH (16:04)
[2019-06-27] MEDS: Ipratropium/Albuterol Neb 3 ML IH SCH ×7 (00:09→23:43)
[2019-06-27 04:39] LABS: Hemoglobin 9.4 g/dL (12.9-16.9); Immature Platelets 5.8 % (1.1-6.1); Mean Corpuscular HGB Conc 31.3 g/dL (31.6-35.5); Mean Corpuscular Hemoglobin 26.6 pg (28.0-33.3); Mean Platelet Volume 9.9 fL (9.4-12.4); Red Blood Count 3.53 M/mcL (4.19-5.50); Red Cell Distribution Width 17.2 % (11.5-14.5); White Blood Count 4.8 K/mcL (4.3-11.1)
[2019-06-27 04:53] LABS: BUN/Creatinine Ratio 24 (6-26); Blood Urea Nitrogen 18 mg/dL (8-23); Calcium 8.5 mg/dL (8.6-10.3); Carbon Dioxide 39 mEq/L (23-29); Chloride 88 mEq/L (98-107); Glucose 85 mg/dL (70-105); Osmolality,Calculated 265 (280-300); Potassium 4.1 mEq/L (3.5-5.1); Sodium 127 mEq/L (136-145); eGFR For African Americans > 60 (> 60); eGFR For Non-African Americans > 60 (> 60)
[2019-06-27 05:00] LABS: Albumin 2.9 g/dL (3.5-5.7); BUN/Creatinine Ratio 23 (6-26); Blood Urea Nitrogen 17 mg/dL (8-23); Calcium 8.4 mg/dL (8.6-10.3); Carbon Dioxide 39 mEq/L (23-29); Chloride 87 mEq/L (98-107); Glucose 85 mg/dL (70-105); Magnesium 1.8 mg/dL (1.6-2.6); Osmolality,Calculated 269 (280-300); Phosphorous 3.1 mg/dL (2.7-4.5); Potassium 4.1 mEq/L (3.5-5.1); Sodium 129 mEq/L (136-145); eGFR For African Americans > 60 (> 60); eGFR For Non-African Americans > 60 (> 60)
[2019-06-27] MEDS: Acetaminophen 325 MG TABLET PO PRN (05:04)
[2019-06-27] MEDS: methocarbamoL 500 MG TABLET PO SCH ×3 (05:05→16:37)
[2019-06-27] MEDS: lisinopriL 5 MG TABLET PO SCH (08:35)
[2019-06-27] MEDS: Aspirin Enteric Coated 81 MG Tablet PO SCH (08:37)
[2019-06-27] MEDS: rOPINIRole 1 MG TABLET PO SCH ×3 (08:37→20:42)
[2019-06-27] MEDS: Nicotine 21 MG PATCH.TD24 TD SCH (08:38)
[2019-06-27] MEDS: Neosporin OINT 1 APPL PACKET TP SCH (08:38)
[2019-06-27] MEDS ORDERED: Albumin 25% 25gram/100mL 25 GM/100 ML IV.SOLN IVPB ONE ×2 (08:39→16:40)
[2019-06-27] MEDS: Furosemide 40 MG TABLET PO SCH ×2 (11:26→18:43)
[2019-06-27] MEDS: Spironolactone 25 MG TABLET PO SCH (11:33)
[2019-06-27 13:53] LABS: Alanine Aminotransferase 19 Units/L (7-52); Albumin 2.9 g/dL (3.5-5.7); Albumin/Globulin Ratio 1.3 (1.1-2.2); Alkaline Phosphatase 98 Units/L (34-104); Aspartate Amino Transferase 28 Units/L (13-39); Bilirubin,Direct 0.6 mg/dL (0.0-0.2); Bilirubin,Indirect 0.9 mg/dL (0.0-1.0); Bilirubin,Total 1.5 mg/dL (0.3-1.0); Globulin 2.2 g/dL (2.4-3.5); Total Protein 5.1 g/dL (6.4-8.9)
[2019-06-27] MEDS ORDERED: *HR* OxyCODONE Immed Rel 5 MG TABLET PO PRN (16:57)
[2019-06-27 16:59] LABS: ABG Base Excess 13 mEq/L (-2 to 3); ABG HCO3 38 mEq/L (21-27); ABG Oxygen Saturation 94 % (95-98); ABG PCO2 52 mmHg (35-45); ABG PH 7.48 pH Units (7.32-7.45); ABG PO2 70 mmHg (85-104); ABG TCO2 40 mEq/L (20-26)
[2019-06-27] MEDS: Sennosides/Docusate Sodium TABLET PO PRN (20:32)
[2019-06-28] MEDS: Ipratropium/Albuterol Neb 3 ML IH SCH ×3 (04:23→11:31)
[2019-06-28 04:36] LABS: Mean Corpuscular HGB Conc 31.5 g/dL (31.6-35.5)
[2019-06-28 04:38] LABS: Hematocrit 29.2 % (37.5-50.1); Hemoglobin 9.2 g/dL (12.9-16.9); Immature Platelets 6.6 % (1.1-6.1); Mean Corpuscular Hemoglobin 26.8 pg (28.0-33.3); Mean Corpuscular Volume 85.1 fL (83.0-100.0); Mean Platelet Volume 9.9 fL (9.4-12.4); Red Blood Count 3.43 M/mcL (4.19-5.50); Red Cell Distribution Width 17.3 % (11.5-14.5)
[2019-06-28 04:55] LABS: BUN/Creatinine Ratio 24 (6-26); Blood Urea Nitrogen 20 mg/dL (8-23); Calcium 8.4 mg/dL (8.6-10.3); Carbon Dioxide 37 mEq/L (23-29); Chloride 83 mEq/L (98-107); Glucose 102 mg/dL (70-105); Osmolality,Calculated 261 (280-300); Potassium 3.9 mEq/L (3.5-5.1); Sodium 124 mEq/L (136-145); eGFR For African Americans > 60 (> 60); eGFR For Non-African Americans > 60 (> 60)
[2019-06-28] MEDS: methocarbamoL 500 MG TABLET PO SCH ×2 (06:51→11:04)
[2019-06-28] MEDS ORDERED: Tolvaptan 15 MG TABLET PO SCH (09:15)
[2019-06-28] MEDS ORDERED: Spironolactone 25 MG TABLET PO SCH (09:15)
[2019-06-28] MEDS ORDERED: Metoprolol XL (24 HR) Succ 25 MG TAB.ER.24H PO SCH (09:45)
[2019-06-28] MEDS: lisinopriL 5 MG TABLET PO SCH (11:04)
[2019-06-28] MEDS: Aspirin Enteric Coated 81 MG Tablet PO SCH (11:04)
[2019-06-28] MEDS: Furosemide 40 MG TABLET PO SCH (11:04)
[2019-06-28] MEDS: rOPINIRole 1 MG TABLET PO SCH (11:04)
[2019-06-28] MEDS: Nicotine 21 MG PATCH.TD24 TD SCH (11:05)
[2019-06-28] MEDS: Spironolactone 25 MG TABLET PO SCH (11:14)
[2019-06-28] MEDS: Neosporin OINT 1 APPL PACKET TP SCH (11:14)
[2019-06-28 11:16] VITALS: BP 102/66
[2019-06-28] MEDS ORDERED: Spironolactone 25 MG TABLET PO ONE (12:30)
[2019-06-28 14:29] LABS: BUN/Creatinine Ratio 24 (6-26); Blood Urea Nitrogen 19 mg/dL (8-23); Calcium 8.3 mg/dL (8.6-10.3); Carbon Dioxide 38 mEq/L (23-29); Chloride 82 mEq/L (98-107); Glucose 106 mg/dL (70-105); Osmolality,Calculated 259 (280-300); Sodium 123 mEq/L (136-145); eGFR For African Americans > 60 (> 60); eGFR For Non-African Americans > 60 (> 60)
[2019-06-29] MEDS ORDERED: Spironolactone 25 MG TABLET PO SCH (09:00)
== END 2019-06-28 14:51 | disposition short-term general hospital (02) | DRG 871 ==
LOC: 2ANU → SUATTDRO 19:42 → ICNU 20:28 → 2ANU 06-15 11:57
PROVIDERS: ADMIT Internal Medicine; ATTEND Family Medicine